=== PATIENT | male | born 1990 | race Caucasian/White ===

== ENCOUNTER → 2021-06-03 | Emergency (ER) | payer OTHER ==
[~2021-06-03] VITALS: Ht 177.8 cm; Wt 107.1 kg
[2021-06-03 12:35] VITALS: BP 138/84
--- NOTE | 2021-06-03 13:28 | PHYS DOC ---
Past Medical History Past Medical History: No Pertinent History (KULWANT SOLIMAN APRN) Past Surgical History: No Surgical History (KULWANT SOLIMAN APRN) Smoking Status: Current Every Day Smoker Alcohol Use: None Drug Use: Other (KULWANT SOLIMAN APRN) General Adult EDM: Chief Complaint: DENTAL PROBLEM HPI: HPI: Patient is a 31-year-old male that presents today with facial swelling. Patient states that he has tooth pain mostly in the front upper jaw area and has noticed some swelling over the last 24 to 48 hours. Patient denies fever or chills. Patient states that he does not have a regular dentist he said he had some dental work done while he was incarcerated. (KULWANT SOLIMAN APRN) Review of Systems: Review of Systems: Constitutional: Denies fever or chills. [] Eyes: Denies change in visual acuity. [] HENT: Left facial swelling and left upper jaw pain Respiratory: Denies cough or shortness of breath. [] Cardiovascular: Denies chest pain or edema. [] GI: Denies abdominal pain, nausea, vomiting, bloody stools or diarrhea. [] : Denies dysuria. [] Musculoskeletal: Denies back pain or joint pain. [] Integument: Denies rash. [] Neurologic: Denies headache, focal weakness or sensory changes. [] Endocrine: Denies polyuria or polydipsia. [] Lymphatic: Denies swollen glands. [] Psychiatric: Denies depression or anxiety. [] (KULWANT SOLIMAN APRN) Heart Score: C/O Chest Pain: N/A Risk Factors: Risk Factors: DM, Current or recent (<one month) smoker, HTN, HLP, family history of CAD, obesity. Risk Scores: Score 0 - 3: 2.5% MACE over next 6 weeks - Discharge Home Score 4 - 6: 20.3% MACE over next 6 weeks - Admit for Clinical Observation Score 7 - 10: 72.7% MACE over next 6 weeks - Early Invasive Strategies (KULWANT SOLIMAN APRN) Allergies: Allergies: Allergies Coded Allergies Type Severity Reaction Last Updated Verified bee venom protein (honey bee) Allergy Severe swelling 06/03/21 Yes (KULWANT SOLIMAN APRN) Physical Exam: PE: Constitutional: Well developed, well nourished, no acute distress, non-toxic appearance. [] HENT: Left facial swelling noted, area is not red or warm to touch, patient does have multiple areas of dental caries in his mouth along with multiple cavities that have been repaired, gumline swelling noted on the upper gum around the front incisors. Eyes: PERRLA, EOMI, conjunctiva normal, no discharge. [] Neck: Normal range of motion, no tenderness, supple, no stridor. [] Cardiovascular:Heart rate regular rhythm, no murmur [] Lungs & Thorax: Bilateral breath sounds clear to auscultation [] Abdomen: Bowel sounds normal, soft, no tenderness, no masses, no pulsatile masses. [] Skin: Warm, dry, no erythema, no rash. [] Back: No tenderness, no CVA tenderness. [] Extremities: No tenderness, no cyanosis, no clubbing, ROM intact, no edema. [] Neurologic: Alert and oriented X 3, normal motor function, normal sensory function, no focal deficits noted. [] Psychologic: Affect normal, judgement normal, mood normal. [] (KULWANT SOLIMAN APRN) Current Patient Data: Vital Signs: Vital Signs Date Time Temp Pulse Resp B/P (MAP) Pulse Ox O2 Delivery O2 Flow Rate FiO2 06/03/21 12:35 98.5 69 20 138/84 (102) 97 Room Air 98.5 (KULWANT SOLIMAN APRN) EKG: EKG: [] (KULWANT SOLIMAN APRN) Radiology/Procedures: Radiology/Procedures: [] (KULWANT SOLIMAN APRN) Course & Med Decision Making: Course & Med Decision Making Pertinent Labs and Imaging studies reviewed. (See chart for details) 1400 I was informed by the RN that was caring for this patient that patient did leave AGAINST MEDICAL ADVICE no treatments were performed (KULWANT SOLIMAN APRN) Dragon Disclaimer: Dragon Disclaimer: This electronic medical record was generated, in whole or in part, using a voice recognition dictation system. (KULWANT SOLIMAN APRN) Departure Departure Impression: Primary Impression: Facial swelling Additional Impression: Pain due to dental caries Disposition: LEFT AGAINST MEDICAL ADVICE Referrals: NON,STAFF (PCP) Attending Signature Attending Signature I have reviewed the PA/MANAGER ENROLLMENT's note and plan of care. I was available for consultation as needed during the patient's visit in the emergency department. I agree with the clinical impression, plan, and disposition. (BUFFY BARAJAS DO) KULWANT SOLIMAN APRN Jun 03, 2021 13:27 BUFFY BARAJAS DO Jun 04, 2021 06:27
[2021-06-03 13:30] LABS: BASO # 0.1 x10^3/uL (0.0-0.2); BASO % 1 % (0-3); EOS # 0.2 x10^3/uL (0.0-0.7); EOS % 1 % (0-3); HEMOGLOBIN 15.5 g/dL (13.0-17.5); LYMPH # 1.5 x10^3/uL (1.0-4.8); LYMPH % 11 % (24-48); MEAN CORPUSCULAR HEMOGLOBIN 32 pg (25-35); MEAN CORPUSCULAR HGB CONC 34 g/dL (31-37); MEAN CORPUSCULAR VOLUME 96 fL (79-100); MONO # 1.4 x10^3/uL (0.0-1.1); MONO % 11 % (0-9); NEUT # 9.9 x10^3/uL (1.8-7.7); NEUT % 76 % (31-73); PLATELET COUNT 258 x10^3/uL (140-400); RED CELL DISTRIBUTION WIDTH 13.8 % (11.5-14.5)
[2021-06-03 13:40] LABS: CALCIUM 8.8 mg/dL (8.5-10.1); GFR 87.2
[2021-06-03 13:55] LABS: ALBUMIN 3.7 g/dL (3.4-5.0); ALBUMIN/GLOBULIN RATIO 0.9 (1.0-1.7); TOTAL BILIRUBIN 0.5 mg/dL (0.2-1.0); TOTAL PROTEIN 7.7 g/dL (6.4-8.2)
== END | disposition left against medical advice (07) ==
LOC: ER 13:09
DX: K02.9 Dental caries, unspecified (principal); R22.0 Localized swelling, mass and lump, head; F17.200 Nicotine dependence, unspecified, uncomplicated; Z91.030 Bee allergy status
CPT/HCPCS: 36415; 80053; 85025; 99283